=== PATIENT | male | born 1985 | race Two or more races ===

== ENCOUNTER 2019-01-03 | Emergency (ER) | payer OTHER ==
[~2019-01-03] VITALS: Ht 177.8 cm; Wt 104.3 kg
[~2019-01-03] MED LIST: AVELOX ABC PAC400 MG PO; RELAGESIC TABLE1 TAB PO
[2019-01-03] MEDS ORDERED: COZAAR25 MG (00:11)
[2019-01-03] MEDS ORDERED: NAPROXEN SODIU550 MG PO (01:47)
== END 2019-01-03 02:13 | disposition home or self-care (01) ==
LOC: ER
DX: S83.422A Sprain of lateral collateral ligament of left knee, initial encounter (principal); X50.0XXA Overexertion from strenuous movement or load, initial encounter; Y93.89 Activity, other specified; Y92.098 Other place in other non-institutional residence as the place of occurrence of the external cause; Y99.8 Other external cause status

== ENCOUNTER 2023-05-21 12:23 | Inpatient (IN) | payer OTHER ==
[~2023-05-21] VITALS: Ht 177.8 cm; Wt 94.3 kg
[~2023-05-21 12:23] MED LIST changes: +COZAAR25 MG; +NAPROXEN SODIU550 MG PO
[2023-05-21 16:25] LABS: HEMATOCRIT 49.2 % (39.0-48.0); HEMOGLOBIN 17.3 g/dL (13-16.00); MEAN CELL VOLUME 82.7 fL (80.0-100.00); RED BLOOD COUNT 5.96 M/uL (4.00-6.00); RED CELL DISTRIBUTION WIDTH 12.9 % (11.5-14.5)
[2023-05-21 16:35] LABS: PH,URINE 5.5 (5.0-8.0); URINE APPEARANCE Cloudy; URINE BILIRRUBIN Small (NEGATIVE); URINE BLOOD Negative; URINE COLOR Dark Yellow; URINE GLUCOSE Negative (NEGATIVE); URINE LEUKOCYTE Trace; URINE NITRATE Negative
[2023-05-21 16:36] LABS: URINE BACTERIA 41.5 uL (0.0-1933); URINE EPITHELIAL CELLS 33.8 uL (0.0-38.8); URINE RBC 15.8 uL (0.0-20.8); URINE WBC 5.1 uL (0.0-23.2)
[2023-05-21 16:48] LABS: ALBUMIN 3.7 gm/dL (3.4-5.0); BILIRUBIN TOTAL 0.59 mg/dL (0.3-1.2); BILIRUBIN,CONJUGATED 0.19 mg/dL (0.0-0.2); BILIRUBIN,UNCONJUGATED 0.4 mg/dL (0.0-0.6); CALCIUM 9.4 mg/dL (8.5-10.1); CREATININE SERUM 1.68 mg/dL (0.70-1.30); GFR 46.73; GLOBULINA 4.9 G/DL (2.4-3.5); POTASSIUM 3.46 mEq/L (3.5-5.1); TOTAL PROTEIN 8.6 gm/dL (6.4-8.2)
[2023-05-21 16:51] LABS: PLATELET COUNT 34 K/uL (150-450)
[2023-05-21 17:19] LABS: URINE PROTEIN 300 (NEGATIVE)
[2023-05-21 17:21] LABS: URINE MUCUS MODERATE
[2023-05-22 01:53] LABS: INR 1.04; PARTIAL THROMBOPLASTIN TIME 36.4 SECONDS (22.0-34.0); PROTHROMBIN TIME 10.9 SECONDS (9.0-11.5)
[2023-05-22 06:29] LABS: HEMATOCRIT 44.9 % (39.0-48.0); HEMOGLOBIN 15.8 g/dL (13-16.00); MEAN CELL VOLUME 82.8 fL (80.0-100.00); MEAN CORPUSCULAR HEMOGLOBIN 29.1 pg (27.00-32.0); MEAN CORPUSCULAR HGB CONC 35.1 g/dl (32.0-36.0); RED BLOOD COUNT 5.42 M/uL (4.00-6.00); RED CELL DISTRIBUTION WIDTH 12.7 % (11.5-14.5)
[2023-05-22 07:16] LABS: ALBUMIN 2.9 gm/dL (3.4-5.0); BILIRUBIN TOTAL 0.56 mg/dL (0.3-1.2); CALCIUM 8.4 mg/dL (8.5-10.1); CREATININE SERUM 0.97 mg/dL (0.70-1.30); GFR 88.07; GLOBULINA 3.8 G/DL (2.4-3.5); POTASSIUM 3.56 mEq/L (3.5-5.1); TOTAL PROTEIN 6.7 gm/dL (6.4-8.2)
[2023-05-22 08:37] LABS: PLT IN CITRATE 20 K/uL (150-450)
[2023-05-22 08:45] LABS: PLATELET COUNT 25 K/uL (150-450)
[2023-05-23 06:10] LABS: HEMATOCRIT 41.9 % (39.0-48.0); MEAN CELL VOLUME 82.6 fL (80.0-100.00); MEAN CORPUSCULAR HEMOGLOBIN 29.1 pg (27.00-32.0); MEAN CORPUSCULAR HGB CONC 35.3 g/dl (32.0-36.0); RED BLOOD COUNT 5.08 M/uL (4.00-6.00); RED CELL DISTRIBUTION WIDTH 12.5 % (11.5-14.5)
[2023-05-23 06:57] LABS: ALBUMIN 2.8 gm/dL (3.4-5.0); BILIRUBIN TOTAL 0.58 mg/dL (0.3-1.2); CALCIUM 8.5 mg/dL (8.5-10.1); CREATININE SERUM 1.02 mg/dL (0.70-1.30); GFR 83.11; GLOBULINA 3.9 G/DL (2.4-3.5); POTASSIUM 4.22 mEq/L (3.5-5.1); TOTAL PROTEIN 6.7 gm/dL (6.4-8.2)
[2023-05-23 07:49] LABS: HEMOGLOBIN 14.8 g/dL (13-16.00)
[2023-05-23 07:50] LABS: PLATELET COUNT 23 K/uL (150-450)
[2023-05-23 07:51] LABS: MANUAL PLATELET COUNT 28
[2023-05-24 08:44] LABS: HEMATOCRIT 40.4 % (39.0-48.0); HEMOGLOBIN 14.2 g/dL (13-16.00); MEAN CELL VOLUME 81.1 fL (80.0-100.00); MEAN CORPUSCULAR HEMOGLOBIN 28.5 pg (27.00-32.0); MEAN CORPUSCULAR HGB CONC 35.1 g/dl (32.0-36.0); RED BLOOD COUNT 4.98 M/uL (4.00-6.00); RED CELL DISTRIBUTION WIDTH 12.9 % (11.5-14.5)
[2023-05-24 08:49] LABS: ALBUMIN 3.1 gm/dL (3.4-5.0); BILIRUBIN TOTAL 0.68 mg/dL (0.3-1.2); CALCIUM 8.5 mg/dL (8.5-10.1); CREATININE SERUM 0.97 mg/dL (0.70-1.30); GFR 88.07; POTASSIUM 4.06 mEq/L (3.5-5.1); TOTAL PROTEIN 7.1 gm/dL (6.4-8.2)
[2023-05-24 09:44] LABS: PLATELET COUNT 43 K/uL (150-450)
[2023-05-24 09:45] LABS: MANUAL PLATELET COUNT 72
[2023-05-25 09:11] LABS: HEMATOCRIT 38.8 % (39.0-48.0); HEMOGLOBIN 13.5 g/dL (13-16.00); MEAN CELL VOLUME 82.9 fL (80.0-100.00); MEAN CORPUSCULAR HEMOGLOBIN 28.8 pg (27.00-32.0); MEAN CORPUSCULAR HGB CONC 34.7 g/dl (32.0-36.0); RED BLOOD COUNT 4.68 M/uL (4.00-6.00); RED CELL DISTRIBUTION WIDTH 12.7 % (11.5-14.5)
[2023-05-25 11:08] LABS: PLATELET COUNT 90 K/uL (150-450)
== END 2023-05-25 10:20 | disposition home or self-care (01) | DRG 866 ==
LOC: ER 12:23 → MEDJ 21:02
PROVIDERS: Emergency Medicine; General Practice; Internal Medicine; Internal Medicine Infectious Disease; ADMIT Internal Medicine; ATTEND Internal Medicine
PROC: BW40ZZZ Ultrasonography of Abdomen (ICD-10-PCS; principal; 2023-05-23)
DX: A90 Dengue fever [classical dengue] (principal); N17.9 Acute kidney failure, unspecified; D69.6 Thrombocytopenia, unspecified; E86.0 Dehydration; B33.8 Other specified viral diseases; I12.9 Hypertensive chronic kidney disease with stage 1 through stage 4 chronic kidney disease, or unspecified chronic kidney disease; N18.9 Chronic kidney disease, unspecified